=== PATIENT | male | born 1995 | race African-American/Black ===

== ENCOUNTER 2017-07-01 22:41 | Inpatient (IN) | payer SELFPAY ==
[2017-07-01] MEDS ORDERED: NORMAL SALINE 1000 ML 1,000 ML IV ONE ×2 (23:23→23:49)
[2017-07-01] MEDS ORDERED: ACETAMINOPHEN 325 MG TABLET PO ONE (23:23)
--- NOTE | 2017-07-01 23:27 | ER Document Report ---
ED Medical Screen (RME) - General Chief Complaint: Flu Symptoms Stated Complaint: FLU SYMPTOMS Time Seen by Provider: 07/01/17 23:22 Mode of Arrival: Ambulatory Information source: Patient Notes: 81-year-old male presents to ED for flulike symptoms. He has body aches headache vomiting 4 today fell out in the bathroom at home has been sick since . He has a pulse of 120, O2 sat of 93, respirations 25, temp 101.5. Lungs have very diminished with wheezes throughout. Patient very short of breath. I have greeted and performed a rapid initial assessment of this patient. A comprehensive ED assessment and evaluation of the patient, analysis of test results and completion of medical decision making process will be conducted by an additional ED providers. TRAVEL OUTSIDE OF THE [place] IN LAST 30 DAYS: No - Related Data Allergies/Adverse Reactions: No Known Allergies Allergy (Unverified 07/01/17 22:45) Past Medical History - Social History Frequency of alcohol use: None Drug Abuse: None Renal/ Medical History: Denies: Hx Peritoneal Dialysis Physical Exam - Vital signs Vitals: Temp Pulse Resp BP Pulse Ox 99.6 F 126 H 20 120/76 93 07/01/17 23:04 07/01/17 23:04 07/01/17 23:04 07/01/17 23:04 07/01/17 23:04 Course - Vital Signs Vital signs: Temp Pulse Resp BP Pulse Ox 101.5 F H 113 H 25 H 120/76 93 07/01/17 23:24 07/01/17 23:24 07/01/17 23:24 07/01/17 23:04 07/01/17 23:24
[2017-07-01] MEDS ORDERED: IPRATROPIUM/ALBUTEROL 0.5-2.5 MG/3 ML AMPUL NEB ONE (23:44)
--- NOTE | 2017-07-01 23:50 | RADIOLOGY REPORT (SQ) ---
EXAM DESCRIPTION: CHEST PA/LAT COMPLETED DATE/TIME: 07/01/2017 11:37 pm REASON FOR STUDY: cough congestion COMPARISON: None. EXAM PARAMETERS: NUMBER OF VIEWS: two views TECHNIQUE: Digital Frontal and Lateral radiographic views of the chest acquired. RADIATION DOSE: NA LIMITATIONS: none FINDINGS: LUNGS AND PLEURA: No consolidation, pneumothorax or pleural effusion. MEDIASTINUM AND HILAR STRUCTURES: No masses or contour abnormalities. HEART AND VASCULAR STRUCTURES: Heart normal size. No evidence for failure. BONES: No acute findings. HARDWARE: None in the chest. IMPRESSION: No acute radiographic finding in the chest. TECHNICAL DOCUMENTATION: JOB ID: [id number] [employer]- All Rights Reserved
--- NOTE | 2017-07-01 23:52 | ER Document Report ---
ED General - General Chief Complaint: Flu Symptoms Stated Complaint: FLU SYMPTOMS Time Seen by Provider: 07/01/17 23:22 Mode of Arrival: Ambulatory Cannot obtain history due to: Unstable vital signs Notes: Patient is a 21-year-old male without past medical history, did receive an influenza vaccine this year who presents in respiratory distress. Patient reports that 2 days ago he began to feel generally unwell developing a fever, cough, vomiting, diarrhea and feeling short of breath. He states that he is symptoms became progressively worse throughout the day today and he felt like he could no longer breathe prior to coming to the hospital. He also apparently syncopized while in the bathroom. He denies any history of similar symptoms in the past. Nothing improves or worsens his symptoms. He has a history of childhood asthma but nothing as an adult. He does not smoke. He is visiting from out of town working. History is otherwise limited secondary to patient's degree of respiratory distress TRAVEL OUTSIDE OF THE [place] IN LAST 30 DAYS: No - Related Data Allergies/Adverse Reactions: No Known Allergies Allergy (Unverified 07/01/17 22:45) Past Medical History - General Information source: Patient - Social History Smoking Status: Never Smoker Frequency of alcohol use: None Drug Abuse: None Family History: Reviewed & Not Pertinent Patient has suicidal ideation: No Patient has homicidal ideation: No Renal/ Medical History: Denies: Hx Peritoneal Dialysis Review of Systems - Review of Systems Notes: Constitutional: Positive for fever. HENT: Negative for sore throat. Eyes: Negative for visual changes. Cardiovascular: Negative for chest pain. Respiratory: Positive for shortness of breath and cough Gastrointestinal: Negative for abdominal pain, positive for vomiting diarrhea Genitourinary: Negative for dysuria. Musculoskeletal: Negative for back pain. Skin: Negative for rash. Neurological: Negative for headaches, weakness or numbness. 10 point ROS negative except as marked above and in HPI. Physical Exam - Vital signs Vitals: Temp Pulse Resp BP Pulse Ox 99.6 F 126 H 20 120/76 93 07/01/17 23:04 07/01/17 23:04 07/01/17 23:04 07/01/17 23:04 07/01/17 23:04 Interpretation: Tachycardic, Hypoxic, Tachypneic, Febrile Notes: PHYSICAL EXAMINATION: GENERAL: Appears unwell, and respiratory distress HEAD: Atraumatic, normocephalic. EYES: Pupils equal round and reactive to light, extraocular movements intact, sclera anicteric, conjunctiva are normal. ENT: nares patent, oropharynx clear without exudates. Dry mucous membranes. NECK: Normal range of motion, supple without lymphadenopathy LUNGS: Coarse air movement in all lung allred, quiet at the bases bilaterally. Respiratory distress breathing 36 times per minute with intercostal and supraclavicular retractions. HEART: Regular tachycardia without murmurs ABDOMEN: Soft, nontender, normoactive bowel sounds. No guarding, no rebound. No masses appreciated. EXTREMITIES: Normal range of motion, no pitting or edema. No cyanosis. NEUROLOGICAL: No focal neurological deficits. Moves all extremities spontaneously and on command. PSYCH: Appropriately anxious SKIN: Warm, Dry, normal turgor, no rashes or lesions noted. Course - Re-evaluation Re-evalutation: 07/01/17 23:47 Patient presents in moderate respiratory distress breathing 35 times a minute, not able to complete a sentence without gasping for breath. He is saturating 92 -93% on room air. I am very concerned that the patient is developing severe influenza with a possible association of ARDS as he has crackling in all lung allred although thankfully his chest x-ray does not appear demonstrate any overt infiltrates. Will obtain labs, lactate, venous blood gas, formal flu testing although the assay is very insensitive this year. Will begin IV fluids , place patient on BiPAP due to his respiratory distress, begin nebulizer treatments and reassess very frequently. 07/02/17 00:08 Patient's work of breathing is improved on BiPAP now breathing 28-29 times per minute although he continues to be unable to complete a full sentence when talking. Saturating 98% on 60% FiO2. 07/02/17 00:51 Patient's work of breathing has markedly improved, respiratory rate at 25 breaths per minute. Saturations currently 98% on 60% FiO2. He does continue to be tachycardic. Continues to have tight, course air movement throughout. 07/02/17 02:25 Patient continues to be much improved, no longer in respiratory distress, continued to tolerate BiPAP well. Dr. Neville has accepted the patient. - Vital Signs Vital signs: Temp Pulse Resp BP Pulse Ox 101.5 F H 113 H 21 H 141/80 H 98 07/01/17 23:24 07/01/17 23:24 07/02/17 01:30 07/02/17 01:30 07/02/17 01:30 - Laboratory Result Diagrams: 07/01/17 23:54 07/01/17 23:54 Laboratory results interpreted by me: 07/01/17 07/01/17 23:54 23:54 WBC 11.2 H RBC 5.67 H Seg Neutrophils % 80.2 H Lymphocytes % 12.8 L Absolute Neutrophils 8.9 H Calcium 10.7 H Total Protein 8.7 H Albumin 5.4 H - Diagnostic Test Radiology reviewed: Image reviewed, Reports reviewed Radiology results interpreted by me: 07/02/17 01:25 Chest x-ray: No acute infiltrate Critical Care Note - Critical Care Note Total time excluding time spent on procedures (mins): 38 Comments: Critical care time spent obtaining history from patient or surrogate, discussions with consultants, development of treatment plan with patient or surrogate, evaluation of patient's response to treatment, examination of patient , ordering and performing treatments and interventions, ordering and review of laboratory studies, re-evaluation of patient's condition, ordering and review of radiographic studies and review of old charts Discharge - Discharge Clinical Impression: Respiratory distress, Influenza Sepsis Qualifiers: Sepsis type: sepsis due to unspecified organism Qualified Code(s): A41.9 - Sepsis, unspecified organism Condition: Fair Disposition: ADMITTED INPATIENT Admitting Provider: Hospitalist [facility] Unit Admitted: Telemetry
[2017-07-02 00:05] LABS: ABSOLUTE EOSINOPHILS # (AUTO) 0.1 10^3/uL (0.0-0.6); ABSOLUTE LYMPHOCYTES (AUTO) 1.4 10^3/uL (0.5-4.7); ABSOLUTE MONOCYTES (AUTO) 0.6 10^3/uL (0.1-1.4); ABSOLUTE NEUT (AUTO) 8.9 10^3/uL (1.7-8.2); BASOPHILS % (AUTO) 0.2 % (0-2); EOSINOPHILS % (AUTO) 1.1 % (0-6); HEMATOCRIT 46.4 % (37.9-51.0); HEMOGLOBIN 15.3 g/dL (13.5-17.0); LYMPHOCYTES % (AUTO) 12.8 % (13-45); MEAN CORPUSCULAR VOLUME 82 fl (80-97); MONOCYTES % (AUTO) 5.7 % (3-13); PLATELET COUNT 215 10^3/uL (150-450); RED BLOOD COUNT 5.67 10^6/uL (4.35-5.55); RED CELL DISTRIBUTION WIDTH 13.5 % (11.5-14.0); SEGMENTED NEUTROPHILS % (AUTO) 80.2 % (42-78); TOTAL CELLS COUNTED % (AUTO) 100 %; WHITE BLOOD COUNT 11.2 10^3/uL (4.0-10.5)
[2017-07-02 00:12] LABS: INTERNATIONAL RATION (INR) 1.08; PROTHROMBIN TIME 14.8 SEC (11.4-15.4)
[2017-07-02 00:23] LABS: A TYPE INFLUENZA AG NEGATIVE (NEGATIVE); B INFLUENZA AG NEGATIVE (NEGATIVE)
[2017-07-02 00:26] LABS: ALANINE AMINOTRANSFERASE 24 U/L (21-72); ALBUMIN 5.4 g/dL (3.5-5.0); ALKALINE PHOSPHATASE 100 U/L (38-126); ANION GAP 17 (5-19); ASPARTATE AMINO TRANSFERASE 32 U/L (17-59); BILIRUBIN,DIRECT 0.1 mg/dL (0.0-0.4); BILIRUBIN,TOTAL 1.2 mg/dL (0.2-1.3); BLOOD UREA NITROGEN 11 mg/dL (7-20); CALCIUM 10.7 mg/dL (8.4-10.2); CARBON DIOXIDE 25 mmol/L (22-30); CHLORIDE 100 mmol/L (98-107); GLUCOSE 95 mg/dL (75-110); POTASSIUM 3.9 mmol/L (3.6-5.0); SODIUM 142.3 mmol/L (137-145); TOTAL PROTEIN 8.7 g/dL (6.3-8.2)
[2017-07-02] MEDS ORDERED: METHYLPREDNISOLONE INJ 125 MG/2 ML SDV IV ONE (00:52)
[2017-07-02] MEDS ORDERED: RINGERS SOLUTION,LACTATED 1,000 ML IV ONE (01:24)
[2017-07-02 02:21] LABS: ARTERIAL BLOOD BASE EXCESS -2.2 mmol/L; ARTERIAL BLOOD H2CO3 1.07 mmol/L (1.05-1.35); ARTERIAL BLOOD O2 SATURATION 97.2 % (94-98); ARTERIAL BLOOD PCO2 35.7 mmHg (35-45); ARTERIAL BLOOD PH 7.41 (7.35-7.45); ARTERIAL BLOOD PO2 93.3 mmHg (80-100); ARTERIAL BLOOD TOTAL CO2 23.1 mmol/L (23-27)
[2017-07-02 02:23] LABS: ARTERIAL BLOOD FIO2 30%
[2017-07-02] MEDS ORDERED: GUAIFENESIN SYRP 200 MG/10 ML UDC PO PRN (02:31)
[2017-07-02] MEDS ORDERED: IPRATROPIUM/ALBUTEROL 0.5-2.5 MG/3 ML AMPUL NEB PRN (02:31)
[2017-07-02] MEDS ORDERED: KETOROLAC TROMETHAMINE INJ/PF 30 MG/1 ML SDV IV PRN (02:31)
[2017-07-02] MEDS ORDERED: ACETAMINOPHEN 325 MG TABLET PO PRN (02:31)
[2017-07-02] MEDS ORDERED: CHLORPHENIRAMINE MALEATE 4 MG TABLET PO ONE (03:15)
[2017-07-02] MEDS ORDERED: OXYMETAZOLINE HCL 0.05% NASAL SPRAY 15 ML BOTTLE NASL ONE (03:15)
[2017-07-02] MEDS: NORMAL SALINE 1000 ML 1,000 ML IV SCH ×2 (03:37→06:20)
--- NOTE | 2017-07-02 05:00 | PDOC H&P ---
History of Present Illness Admission Date/PCP: 07/02/17 02:33 Patient complains of: Shortness of breath and cough History of Present Illness: MARE PEREYRA is a 21 year old male with a past medical history of chronic bronchitis. He presents with approximately 4 days ago developing headache, upper respiratory congestion, headache, nausea and vomiting. In the emergency room he states he believes he has the flu, severe tachypnea, hypoxia and rhonchi. He is placed on the BiPAP receiving empiric antibiotics, albuterol and Atrovent. Patient denies recent antibiotic use, change in medications, chest pain or palpitations. He is referred to the hospitalist for admission. Past Medical History Medical History: None Pulmonary Medical History: Reports: Bronchitis EENT Medical History: Reports: None Neurological Medical History: Reports: None Endocrine Medical History: Reports: None Renal/ Medical History: Reports: None Malignancy Medical History: Reports: None GI Medical History: Reports: None Musculoskeltal Medical History: Reports: None Skin Medical History: Reports: None Psychiatric Medical History: Reports: None Traumatic Medical History: Reports: None Hematology: Reports: None Infectious Medical History: Reports: None Past Surgical History Past Surgical History: Reports: None Social History Information Source: Patient Smoking Status: Former Smoker Frequency of Alcohol Use: Social Hx Recreational Drug Use: No Drugs: None - Advance Directive Resuscitation Status: Full Code Family History Family History: COPD Parental Family History Reviewed: Yes Children Family History Reviewed: Yes Sibling(s) Family History Reviewed.: Yes Medication/Allergy Allergies/Adverse Reactions: No Known Allergies Allergy (Unverified 07/01/17 22:45) Review of Systems Constitutional: PRESENT: as per HPI, chills, fatigue, fever(s), headache(s), weakness Eyes: ABSENT: visual disturbances Ears: ABSENT: hearing changes Nose, Mouth, and Throat: PRESENT: as per HPI, headache(s) Cardiovascular: ABSENT: chest pain, dyspnea on exertion, edema, orthropnea, palpitations Respiratory: PRESENT: as per HPI, cough, dyspnea, sputum Gastrointestinal: ABSENT: abdominal pain, constipation, diarrhea, hematemesis, hematochezia, nausea, vomiting Genitourinary: ABSENT: dysuria, hematuria Musculoskeletal: ABSENT: joint swelling Integumentary: ABSENT: rash, wounds Neurological: ABSENT: abnormal gait, abnormal speech, confusion, dizziness, focal weakness, syncope Psychiatric: ABSENT: as per HPI, anxiety, depression, hallucinations, homidical ideation, suicidal ideation, other Endocrine: ABSENT: cold intolerance, heat intolerance, polydipsia, polyuria Hematologic/Lymphatic: ABSENT: easy bleeding, easy bruising Physical Exam Vital Signs: Temp Pulse Resp BP Pulse Ox 101.5 F H 113 H 20 124/77 95 07/01/17 23:24 07/01/17 23:24 07/02/17 04:31 07/02/17 04:31 07/02/17 04:31 General appearance: PRESENT: cooperative, severe distress Head exam: PRESENT: atraumatic, normocephalic Eye exam: PRESENT: conjunctiva pink, EOMI, PERRLA. ABSENT: scleral icterus Ear exam: PRESENT: normal external ear exam Mouth exam: PRESENT: moist, tongue midline Neck exam: ABSENT: carotid bruit, JVD, lymphadenopathy, thyromegaly Respiratory exam: PRESENT: accessory muscle use, crackles, prolonged expiratory phas, rales, retraction, rhonchi, symmetrical, tachypnea, wheezes. ABSENT: chest wall tenderness Cardiovascular exam: PRESENT: RRR. ABSENT: diastolic murmur, rubs, systolic murmur Pulses: PRESENT: normal dorsalis pedis pul Vascular exam: PRESENT: normal capillary refill GI/Abdominal exam: PRESENT: normal bowel sounds, soft. ABSENT: distended, guarding, mass, organolmegaly, rebound, tenderness Rectal exam: PRESENT: deferred Extremities exam: PRESENT: full ROM. ABSENT: calf tenderness, clubbing, pedal edema Neurological exam: PRESENT: alert, awake, oriented to person, oriented to place , oriented to time, oriented to situation, CN II-XII grossly intact. ABSENT: motor sensory deficit Psychiatric exam: PRESENT: appropriate affect, normal mood. ABSENT: homicidal ideation, suicidal ideation Skin exam: PRESENT: dry, intact, warm. ABSENT: cyanosis, rash Results Impressions: Chest X-Ray 07/01/17 23:29 IMPRESSION: No acute radiographic finding in the chest. Assessment & Plan - Diagnosis (1) Pneumonia Is this a current diagnosis for this admission?: Yes Plan: Telemetry admission, empiric antibiotics, albuterol and Atrovent, BiPAP, incentive spirometry. Follow-up CBC and culture (2) Frontal sinusitis Is this a current diagnosis for this admission?: Yes Plan: Symptomatic management, chlorpheniramine, empiric antibiotics. - Time Time Spent: 30 to 50 Minutes - Inpatient Certification Medical Necessity: Need Close Monitoring Due to Risk of Patient Decompensation
[2017-07-02] MEDS ORDERED: HEPARIN SOD (PORCINE) 5,000 UNIT/ML 1 ML SYRINGE SUBCUT SCH (06:00)
--- NOTE | 2017-07-02 06:29 | EKG REPORT ---
SEVERITY:- ABNORMAL ECG - SINUS RHYTHM ST ELEVATION SUGGESTS PERICARDITIS , CLINICAL CORRELATION NEEDED : Confirmed by: Loc Foy MD 02-Jul-2017 06:29:20
[2017-07-02 07:03] LABS: ABSOLUTE LYMPHOCYTES (AUTO) 1.1 10^3/uL (0.5-4.7); ABSOLUTE MONOCYTES (AUTO) 0.1 10^3/uL (0.1-1.4); ABSOLUTE NEUT (AUTO) 7.5 10^3/uL (1.7-8.2); BASOPHILS % (AUTO) 0.1 % (0-2); EOSINOPHILS % (AUTO) 0.1 % (0-6); HEMATOCRIT 40.8 % (37.9-51.0); HEMOGLOBIN 13.5 g/dL (13.5-17.0); LYMPHOCYTES % (AUTO) 12.9 % (13-45); MEAN CORPUSCULAR HEMOGLOBIN 27.2 pg (27.0-33.4); MEAN CORPUSCULAR HGB CONC 33.1 g/dL (32.0-36.0); MEAN CORPUSCULAR VOLUME 82 fl (80-97); MONOCYTES % (AUTO) 1.1 % (3-13); PLATELET COUNT 179 10^3/uL (150-450); RED BLOOD COUNT 4.96 10^6/uL (4.35-5.55); RED CELL DISTRIBUTION WIDTH 13.3 % (11.5-14.0); SEGMENTED NEUTROPHILS % (AUTO) 85.8 % (42-78); TOTAL CELLS COUNTED % (AUTO) 100 %; WHITE BLOOD COUNT 8.8 10^3/uL (4.0-10.5)
[2017-07-02 07:18] LABS: ANION GAP 10 (5-19); BLOOD UREA NITROGEN 10 mg/dL (7-20); CALCIUM 9.8 mg/dL (8.4-10.2); CARBON DIOXIDE 23 mmol/L (22-30); CHLORIDE 108 mmol/L (98-107); GLUCOSE 124 mg/dL (75-110); POTASSIUM 4.5 mmol/L (3.6-5.0); SODIUM 140.7 mmol/L (137-145)
[2017-07-02] MEDS ORDERED: IPRATROPIUM/ALBUTEROL 0.5-2.5 MG/3 ML AMPUL NEB SCH ×2 (08:00→12:00)
[2017-07-02 08:29] VITALS: BP 130/75
--- NOTE | 2017-07-02 08:55 | Progress Note ---
Provider Note Provider Note: Patient seen this morning. Patient was placed on steroids and given a mag bolus. Pt gives history of having asthma as a child. Patient also reports having problems with wheezing and cough as an adult. Patient states he does not use any asthma medications. Continue to monitor patient throughout hospitalization. Pt currently written for BiPAP however feel that this most likely can be discontinued once patient has received additional breathing treatments. Will increase breathing treatments to every 4 hours.
[2017-07-02] MEDS ORDERED: MAGNESIUM SULFATE/D5W 1 GM/100 ML RTUPB IV SCH (10:00)
[2017-07-02] MEDS ORDERED: GUAIFENESIN 600 MG TABLET.SA PO SCH (10:00)
[2017-07-02] MEDS ORDERED: LEVOFLOXACIN 750 MG/D5W RTU 750 MG/150 ML RTUPB IV SCH (10:00)
[2017-07-02] MEDS ORDERED: OXYMETAZOLINE HCL 0.05% NASAL SPRAY 15 ML BOTTLE NASL SCH (10:00)
[2017-07-02] MEDS ORDERED: METHYLPREDNISOLONE INJ 125 MG/2 ML SDV IV SCH (14:00)
--- NOTE | 2017-07-02 14:22 | PDOC DISCHARGE SUMMARY ---
General - Admit/Disc Date/PCP Admission Date/Primary Care Provider: 07/02/17 02:33 Discharge Date: 07/02/17 - Discharge Diagnosis (1) Respiratory distress Is this a current diagnosis for this admission?: Yes Summary: Pt was admitted to the hospital where he was placed on breathing treatments, steroids, and antibiotics. Patient gives history of asthma during childhood and then give several accounts of having wheezing shortness of breath episodes as an adult. Pt most likely still has asthma but does not treat it. Due to patient requesting to be discharged immediately due to having no transportation back to [place] patient signed out AMA (2) History of asthma Is this a current diagnosis for this admission?: Yes Summary: Patient placed on steroids, breathing treatments, and antibiotics. Patient's presentation most likely complicated by asthma given the fact that patient is given history of wheezing shortness of breath as an adult. Patient is already confirmed that he does have history of asthma during childhood. Patient will need a follow-up pulmonary where he has formal lung study test. (3) Frontal sinusitis Is this a current diagnosis for this admission?: Yes Summary: Patient had been placed on antibiotics however patient left AMA. (4) Influenza Is this a current diagnosis for this admission?: Yes Summary: Patient was negative for the flu. Patient left AMA (5) Pneumonia Is this a current diagnosis for this admission?: Yes Summary: Pt had been placed on antibiotics however left AMA - Additional Information Resuscitation Status: Full Code Home Medications: No Home Medications 07/02/17 History of Present Illness Patient complains of: Shortness of breath History of Present Illness: MARE PEREYRA is a 21 year old male sent to the emergency room with complaint of shortness of breath. Patient was found to to be flu negative. Patient was being treated for pneumonia and presumed asthma exacerbation however patient left AGAINST MEDICAL ADVICE.. Hospital Course Hospital Course: Pt was admitted where he is being treated for pneumonia and presumed asthma exacerbation however patient left AMA. Physical Exam Vital Signs: Temp Pulse Resp BP Pulse Ox 97.7 F 92 22 H 130/75 H 94 07/02/17 08:15 07/02/17 11:07 07/02/17 11:07 07/02/17 08:15 07/02/17 11:07 Intake & Output 07/01/17 07/02/17 07/03/17 06:59 06:59 06:59 Output Total 800 Balance -800 Weight 64.4 kg General appearance: PRESENT: mild distress, well-developed, well-nourished Head exam: PRESENT: atraumatic, normocephalic Eye exam: PRESENT: conjunctiva pink, EOMI. ABSENT: scleral icterus Ear exam: PRESENT: normal external ear exam Mouth exam: PRESENT: moist, tongue midline Neck exam: ABSENT: carotid bruit, JVD, lymphadenopathy, thyromegaly Respiratory exam: PRESENT: accessory muscle use, prolonged expiratory phas, rhonchi, wheezes Cardiovascular exam: PRESENT: RRR. ABSENT: diastolic murmur, rubs, systolic murmur Pulses: PRESENT: normal dorsalis pedis pul Vascular exam: PRESENT: normal capillary refill GI/Abdominal exam: PRESENT: normal bowel sounds, soft. ABSENT: distended, guarding, mass, organolmegaly, rebound, tenderness Rectal exam: PRESENT: deferred Extremities exam: PRESENT: full ROM. ABSENT: calf tenderness, clubbing, pedal edema Neurological exam: PRESENT: alert, awake, oriented to person, oriented to place , oriented to time, oriented to situation, CN II-XII grossly intact. ABSENT: motor sensory deficit Psychiatric exam: PRESENT: appropriate affect, normal mood. ABSENT: homicidal ideation, suicidal ideation Skin exam: PRESENT: dry, intact, warm. ABSENT: cyanosis, rash Results Laboratory Results: 07/02/17 06:40 07/02/17 06:40 07/02/17 07/02/17 06:40 06:40 WBC 8.8 RBC 4.96 Hgb 13.5 Hct 40.8 MCV 82 MCH 27.2 MCHC 33.1 RDW 13.3 Plt Count 179 Seg Neutrophils % 85.8 H Lymphocytes % 12.9 L Monocytes % 1.1 L Eosinophils % 0.1 Basophils % 0.1 Absolute Neutrophils 7.5 Absolute Lymphocytes 1.1 Absolute Monocytes 0.1 Absolute Eosinophils 0.0 Absolute Basophils 0.0 Sodium 140.7 Potassium 4.5 Chloride 108 H Carbon Dioxide 23 Anion Gap 10 BUN 10 Creatinine 0.77 Est GFR ( Amer) > 60 Est GFR (Non-Af Amer) > 60 Glucose 124 H Calcium 9.8 Impressions: Chest X-Ray 07/01/17 23:29 IMPRESSION: No acute radiographic finding in the chest. Plan Time Spent: Less than 30 Minutes
== END 2017-07-02 14:15 | disposition home or self-care (01) | DRG 194 ==
LOC: ER 22:41 → EH 07-02 02:33 → 5 07-02 12:14
PROVIDERS: ADMIT Internal Medicine; ATTEND Internal Medicine
PROC: 5A09357 Assistance with Respiratory Ventilation, Less than 24 Consecutive Hours, Continuous Positive Airway Pressure (ICD-10-PCS; principal; 2017-07-01)
PROC: 3E0F73Z Introduction of Anti-inflammatory into Respiratory Tract, Via Natural or Artificial Opening (ICD-10-PCS; 2017-07-02)
DX: J18.9 Pneumonia, unspecified organism (principal); J45.901 Unspecified asthma with (acute) exacerbation; J32.1 Chronic frontal sinusitis; Z87.891 Personal history of nicotine dependence; Z83.6 Family history of other diseases of the respiratory system
CPT/HCPCS: 36415; 71046; 80048; 80053; 82803; 83605; 85025; 85610; 87040; 87804; 93005; 93010; 94660; 96361; 96374; 99291; J1644; J1885; J1956; J2930; J3475; J3490; J7030; J7120; J7620